=== PATIENT | female | born 1995 | race American Indian/Alaskan Native ===

== ENCOUNTER 2018-02-03 19:50 | Emergency (ER) | payer MEDICAID, OTHER ==
--- NOTE | 2018-02-03 20:55 | Emergency Department Report ---
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 Patient states she breast feeds her 1-year-old infant. Patient states [age] year infant had oral thrush for the past week. She denies some breast swelling, discharge, pain or any other problems simply states that right nipple region is slightly irritated. ED Past Medical Hx - Past Medical History Previous Medical History?: No - Surgical History Past Surgical History?: No - Social History Smoking Status: Never Smoker Substance Use Type: None - Medications Home Medications: Home Medications Medication Instructions Recorded Confirmed Last Taken Type Nitrofurantoin Mason/M-Cryst 100 mg PO Q12HR #10 capsule 02/03/14 Unknown Rx [Macrobid] metroNIDAZOLE 0.75%(NF) [Metrogel 1 applicatio TP BID #1 tube 02/03/14 Unknown Rx 0.75% TOPICAL] Cephalexin [Keflex] 500 mg PO Q6H #14 capsule 02/13/15 Unknown Rx Breast Pump [Pump in Style 1 each MC DAILY #1 each 02/03/18 Unknown Rx Advanced] ED Review of Systems ROS: Stated complaint: THRUSH Other details as noted in HPI Constitutional: denies: chills, fever Eyes: denies: eye pain, eye discharge, vision change ENT: denies: ear pain, throat pain Respiratory: denies: cough, shortness of breath, wheezing Cardiovascular: denies: chest pain, palpitations Endocrine: no symptoms reported Gastrointestinal: denies: abdominal pain, nausea, diarrhea Genitourinary: denies: urgency, dysuria, discharge Musculoskeletal: denies: back pain, joint swelling, arthralgia Skin: denies: rash, lesions Neurological: denies: headache, weakness, paresthesias Psychiatric: denies: anxiety, depression Hematological/Lymphatic: denies: easy bleeding, easy bruising Physical Exam - Physical Exam Vital Signs: Vital Signs 02/03/18 19:58 Temperature 98.8 F Pulse Rate 77 Respiratory 18 Rate Blood Pressure 134/84 O2 Sat by Pulse 97 Oximetry Physical Exam: GENERAL: Alert and oriented x3, no apparent distress, Normal Gait, atraumatic. NECK: Supple. Non edematous, No carotid bruits. No lymphadenopathy or thyromegaly. No C-spine tenderness LUNGS: Symetrical with respiration, No wheezing, no rales or crackles, CTAB. HEART: S1, S2 present, regular rate and rhythm without murmur, no rubs, no gallops. Non tender to palpation BREAST: Symetrical, Supple bilaterally, No Masses, lumps, lesions, ulcerations. mild irritation of nipple and areola, non erythemathous SKIN: Warm and dry, No lesions, No ulceration or induration present. ED Course Vital Signs 02/03/18 19:58 Temperature 98.8 F Pulse Rate 77 Respiratory 18 Rate Blood Pressure 134/84 O2 Sat by Pulse 97 Oximetry ED Medical Decision Making - Medical Decision Making 22-year-old female presents with the pleural irritation Discussed with the patient to stop presented for a couple days until child is healed from thrush Discussed patient to apply nystatin and corticosteroid cream to apply 3 times a day Discussed the follow up with [facility] doctor. Vital signs are normal she is in no acute distress Critical care attestation.: If time is entered above; I have spent that time in minutes in the direct care of this critically ill patient, excluding procedure time. ED Disposition Clinical Impression: Nipple dermatitis Disposition: DC-01 TO HOME OR SELFCARE Is pt being admited?: No Does the pt Need Aspirin: No Condition: Stable Instructions: Mastitis (ED), and Nipple Soreness (ED) Additional Instructions: Make sure to follow up with the primary care physician as discussed. Use corticosteroid cream as prescribed. Avoid breast-feeding for completely days for a breast pump If you have any worsening symptoms or develop new symptoms please return to ED immediately. Prescriptions: Breast Pump [Pump in Style Advanced] 1 each DAILY #1 each Referrals: BETTY FRANCIS MD [Primary Care Provider] - 3-5 Days [facility] [Outside] - 3-5 Days [facility] [Outside] - 3-5 Days [facility] [Outside] - 3-5 Days Forms: Work/School Release Form(ED) Time of Disposition: 20:57
[2018-02-03 21:43] VITALS: BP 128/76
== END 2018-02-03 21:44 | disposition home or self-care (01) ==
LOC: ED 19:50
DX: N61.1 Abscess of the breast and nipple (principal)
CPT/HCPCS: 36415; 84703; 99283

== ENCOUNTER 2021-06-29 02:16 | Outpatient (CLI) | payer MEDICAID ==
[2021-06-29 02:57] VITALS: BP 99/55
[2021-06-29] MEDS ORDERED: LACTATED RINGERS 1,000 ML IV ONE (02:57)
== END 2021-06-29 03:55 | disposition home or self-care (01) ==
LOC: TRG 02:16 → APU 02:18 → TRG 03:55
PROVIDERS: ATTEND Obstetrics & Gynecology
DX: Z34.93 Encounter for supervision of normal pregnancy, unspecified, third trimester (principal); Z3A.36 36 weeks gestation of pregnancy
CPT/HCPCS: 36415; 59025; 84112